=== PATIENT | male | born 1945 | race African-American/Black ===

== ENCOUNTER 2017-11-21 13:15 | Emergency (ER) | payer MEDICAID, MEDICARE, OTHER ==
[~2017-11-21] VITALS: Ht 175.3 cm; Wt 90.7 kg
[~2017-11-21 13:15] MED LIST: Naloxone 1mg/ml 2ml IVP PRN; Ultram; aspirin; atenolol; prostate medication
[2017-11-21 13:52] LABS: EOSINOPHILS % (AUTO) 0.4 % (0.0-3.0); HEMATOCRIT 46.1 % (42.0-52.0); HEMOGLOBIN 15.2 G/DL (14.2-18.0); LYMPHOCYTES % (AUTO) 19.5 % (20.0-45.0); MEAN CORPUSCULAR VOLUME 91 FL (80-99); MONOCYTES % (AUTO) 7.4 % (1.0-10.0); NEUTROPHILS % (AUTO) 69.7 % (45.0-75.0); PLATELET COUNT 301 K/UL (150-450); RED BLOOD COUNT 5.07 M/UL (4.70-6.10); RED CELL DISTRIBUTION WIDTH 12.7 % (11.6-14.8); WHITE BLOOD COUNT 8.7 K/UL (4.8-10.8)
--- NOTE | 2017-11-21 13:55 | Emergency Room Report ---
History of Present Illness General Chief Complaint: Altered Mental Status Source: EMS (SAWYER ARCEO D.O.) Present Illness HPI Patient presents with altered mental status. Apparently, he has a history of drug use and specifically narcotic abuse. He is brought in by EMS. Per report , the patient was altered and minimally responsive outside of his home. Per report, there had been drug use. There is no reported trauma. The patient only localizes to pain and is unable to give a history. There is no evidence of trauma. No other history is available. (SAWYER ARCEO D.O.) Allergies: Coded Allergies: No Known Allergies (Unverified , 08/19/13) Patient History Past Medical History: see triage record, HTN, other - drug abuse Social History: Reports: drug use Reviewed Nursing Documentation: PMH: Agreed; PSxH: Agreed (SAWYER ARCEO D.O. ) Nursing Documentation-PMH Past Medical History: No History, Except For Hx Hypertension: Yes (SAWYER ARCEO D.O.) Review of Systems All Other Systems: limited (SAWYER ARCEO D.O.) Physical Exam Vital Signs Date Time Temp Pulse Resp B/P (MAP) Pulse Ox O2 Delivery O2 Flow Rate FiO2 11/21/17 12:58 98.2 99 16 140/90 94 Room Air 98.2 Sp02 EP Interpretation: reviewed, normal General Appearance: no apparent distress, non-toxic, Stupor - Localizes to pain. Occassionaly responds with words. Head: normocephalic, atraumatic Eyes: bilateral eye normal inspection, bilateral eye PERRL ENT: hearing grossly normal, normal pharynx, no angioedema, normal voice Neck: full range of motion, supple/symm/no masses Respiratory: chest non-tender, lungs clear, normal breath sounds, no respiratory distress, no retraction, no accessory muscle use, speaking full sentences Cardiovascular #1: regular rate, rhythm, no edema Gastrointestinal: normal bowel sounds, soft, non-distended, no guarding, no rebound Rectal: deferred Musculoskeletal: normal inspection Neurologic: sensory intact, other - Non-focal. localizes to pain. Occassionaly responds with one word answers. Skin: normal color, no rash, warm/dry, well hydrated (COLIANNO,SAWYER M D.O.) Medical Decision Making Diagnostic Impression: Primary Impression: Altered mental status Qualified Codes: R41.82 - Altered mental status, unspecified Additional Impression: Substance abuse ER Course This patient presents with altered mental status. He has a history of drug abuse. Specifically has a history of opioid use and cocaine use. He is stuporous. On arrival, he only withdrew from pain and had an occasional appropriate word. During my evaluation of him in the emergency department, he did have some improvement he opened his eyes and answered some questions. He is still sleepy. He was given Narcan without response. I suspect this patient took benzodiazepines. At this time, the patient is being monitored. The patient will be turned over to Dr. Gordon with plans to either discharge of the patient clears or admit if the patient continues to be stuporous. If this patient requires admission, an addendum will be added by Dr. Gordon. Laboratory Tests Test 11/21/17 13:25 White Blood Count 8.7 K/UL (4.8-10.8) Red Blood Count 5.07 M/UL (4.70-6.10) Hemoglobin 15.2 G/DL (14.2-18.0) Hematocrit 46.1 % (42.0-52.0) Mean Corpuscular Volume 91 FL (80-99) Mean Corpuscular Hemoglobin 29.9 PG (27.0-31.0) Mean Corpuscular Hemoglobin Concent 32.9 G/DL (32.0-36.0) Red Cell Distribution Width 12.7 % (11.6-14.8) Platelet Count 301 K/UL (150-450) Mean Platelet Volume 8.6 FL (6.5-10.1) Neutrophils (%) (Auto) 69.7 % (45.0-75.0) Lymphocytes (%) (Auto) 19.5 % (20.0-45.0) L Monocytes (%) (Auto) 7.4 % (1.0-10.0) Eosinophils (%) (Auto) 0.4 % (0.0-3.0) Basophils (%) (Auto) 3.0 % (0.0-2.0) H Sodium Level 139 MMOL/L (136-145) Potassium Level 4.2 MMOL/L (3.5-5.1) Chloride Level 106 MMOL/L (98-107) Carbon Dioxide Level 25 MMOL/L (21-32) Anion Gap 8 mmol/L (5-15) Blood Urea Nitrogen 12 mg/dL (7-18) Creatinine 1.0 MG/DL (0.55-1.30) Estimate Glomerular Filtration Rate > 60 mL/min (>60) Glucose Level 107 MG/DL (74-106) H Calcium Level 10.0 MG/DL (8.5-10.1) Total Bilirubin 0.5 MG/DL (0.2-1.0) Direct Bilirubin < 0.1 MG/DL (0.0-0.3) Aspartate Amino Transferase (AST) 23 U/L (15-37) Alanine Aminotransferase (ALT) 32 U/L (12-78) Alkaline Phosphatase 89 U/L (46-116) Total Protein 7.6 G/DL (6.4-8.2) Albumin 3.9 G/DL (3.4-5.0) Globulin 3.7 g/dL Albumin/Globulin Ratio 1.1 (1.0-2.7) Serum Alcohol < 3 mg/dL (SAWYER ARCEO D.ONate) ER Course Hospital Course 71-year-old M presents to ED with altered mental status. found passed out in car Clinical course Patient initially seen and evaluated by Dr Banda; please see her note for full history and physical Labs reviewed-electrolytes okay, no leukocytosis, hemoglobin/hematocrit stable, tox panel + cocaine, opiates CT brain shows no acute pathology patient allowed to rest. Patient is now awake alert oriented x3, ambulating. given referral for substance abuse counseling i. I feel this is a highly complex case requiring extensive working including EKG/Rhythm strip, Xray/CT/US, Blood/urine lab work, repeat exams while in ED, and administration of strong opiates/narcotics for pain control, admission to hospital or close patient follow up. Diagnosis - AMS, substance abuse Stable and discharged to home. Followup with PMD. Return to ED if symptoms recur or worsen Labs Test 11/21/17 13:25 11/21/17 14:28 White Blood Count 8.7 K/UL (4.8-10.8) Red Blood Count 5.07 M/UL (4.70-6.10) Hemoglobin 15.2 G/DL (14.2-18.0) Hematocrit 46.1 % (42.0-52.0) Mean Corpuscular Volume 91 FL (80-99) Mean Corpuscular Hemoglobin 29.9 PG (27.0-31.0) Mean Corpuscular Hemoglobin Concent 32.9 G/DL (32.0-36.0) Red Cell Distribution Width 12.7 % (11.6-14.8) Platelet Count 301 K/UL (150-450) Mean Platelet Volume 8.6 FL (6.5-10.1) Neutrophils (%) (Auto) 69.7 % (45.0-75.0) Lymphocytes (%) (Auto) 19.5 % (20.0-45.0) Monocytes (%) (Auto) 7.4 % (1.0-10.0) Eosinophils (%) (Auto) 0.4 % (0.0-3.0) Basophils (%) (Auto) 3.0 % (0.0-2.0) Sodium Level 139 MMOL/L (136-145) Potassium Level 4.2 MMOL/L (3.5-5.1) Chloride Level 106 MMOL/L (98-107) Carbon Dioxide Level 25 MMOL/L (21-32) Anion Gap 8 mmol/L (5-15) Blood Urea Nitrogen 12 mg/dL (7-18) Creatinine 1.0 MG/DL (0.55-1.30) Estimat Glomerular Filtration Rate > 60 mL/min (>60) Glucose Level 107 MG/DL (74-106) Calcium Level 10.0 MG/DL (8.5-10.1) Total Bilirubin 0.5 MG/DL (0.2-1.0) Direct Bilirubin < 0.1 MG/DL (0.0-0.3) Aspartate Amino Transf (AST/SGOT) 23 U/L (15-37) Alanine Aminotransferase (ALT/SGPT) 32 U/L (12-78) Alkaline Phosphatase 89 U/L (46-116) Total Protein 7.6 G/DL (6.4-8.2) Albumin 3.9 G/DL (3.4-5.0) Globulin 3.7 g/dL Albumin/Globulin Ratio 1.1 (1.0-2.7) Serum Alcohol < 3 mg/dL Urine Opiates Screen Positive (NEGATIVE) Urine Barbiturates Screen Negative (NEGATIVE) Phencyclidine (PCP) Screen Negative (NEGATIVE) Urine Amphetamines Screen Negative (NEGATIVE) Urine Benzodiazepines Screen Negative (NEGATIVE) Urine Cocaine Screen Positive (NEGATIVE) Urine Marijuana (THC) Screen Negative (NEGATIVE) (Derick Gordon MD) EKG Diagnostic Results Rate: normal Rhythm: other - SR w/ 1st degree AV block ST Segments: no acute changes Other Impression ST changes are unchanged from comparison EKG on 08/16/2013 (SAWYER ARCEO D.O.) Rhythm Strip Diag. Results EP Interpretation: yes Rate: 70's Rhythm: NSR, no PVC's, no ectopy (SAWYER ARCEO D.O.) CT/MRI/US Diagnostic Results CT/MRI/US Diagnostic Results : Imaging Test Ordered: CT head (SAWYER ARCEO D.O.) CT/MRI/US Diagnostic Results : Imaging Test Ordered: CT Head Impression no acute process (Derick Gordon MD) Last Vital Signs Date Time Temp Pulse Resp B/P (MAP) Pulse Ox O2 Delivery O2 Flow Rate FiO2 11/21/17 12:58 98.2 99 16 140/90 94 Room Air 98.2 (SAWYER ARCEO D.O.) Status: improved (Derick Gordon MD) Disposition: HOME, SELF-CARE Condition: Stable SAWYER ARCEO D.O. November 21, 2017 13:55 Derick Gordon MD November 21, 2017 18:05
[2017-11-21 14:02] LABS: ANION GAP 8 mmol/L (5-15); BLOOD UREA NITROGEN 12 mg/dL (7-18); CARBON DIOXIDE 25 MMOL/L (21-32); CHLORIDE 106 MMOL/L (98-107); POTASSIUM 4.2 MMOL/L (3.5-5.1); SODIUM 139 MMOL/L (136-145)
[2017-11-21 14:06] LABS: ALANINE AMINOTRANSFERASE 32 U/L (12-78); ALBUMIN 3.9 G/DL (3.4-5.0); ALBUMIN/GLOBULIN RATIO 1.1 (1.0-2.7); ALKALINE PHOSPHATASE 89 U/L (46-116); ASPARTATE AMINO TRANSFERASE 23 U/L (15-37); BILIRUBIN,DIRECT < 0.1 MG/DL (0.0-0.3); BILIRUBIN,TOTAL 0.5 MG/DL (0.2-1.0)
--- NOTE | 2017-11-21 14:31 | Diagnostic Imaging Report ---
EXAM: CT Head Without Intravenous Contrast CLINICAL HISTORY: AMS TECHNIQUE: Axial computed tomography images of the head/brain without intravenous contrast. CTDI is 70.38 mGy and DLP is 1411 mGy-cm One or more of the following dose reduction techniques were used: automated exposure control, adjustment of the mA and/or kV according to patient size, use of iterative reconstruction technique. COMPARISON: No relevant prior studies available. FINDINGS: Brain: No intracranial hemorrhage or mass effect. 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 Ventricles: Unremarkable. No ventriculomegaly. Bones/joints: Unremarkable. No acute fracture. Soft tissues: Induration in the right parietal scalp. Possibility of a contusion. Sinuses: Mild mucosal thickening to the right maxillary sinus. Mastoid air cells: Unremarkable as visualized. No mastoid effusion. IMPRESSION: No acute intracranial process.
[2017-11-21 15:03] VITALS: BP 106/55
[2017-11-21 15:35] VITALS: BP 113/67
[2017-11-21 17:48] VITALS: BP 116/71
== END 2017-11-21 17:48 | disposition home or self-care (01) ==
LOC: EDBD 13:15 → EMR 13:25
DX: R41.82 Altered mental status, unspecified (principal); F14.10 Cocaine abuse, uncomplicated; F11.10 Opioid abuse, uncomplicated; I10 Essential (primary) hypertension
CPT/HCPCS: 36415; 70450; 80053; 80307; 82248; 85025; 96374; 96375; 99284; G0480; 80329